=== PATIENT | male | born 1950 | race Caucasian/White ===

== ENCOUNTER 2018-09-05 07:15 | Inpatient (IN) | payer MEDICARE, OTHER ==
[~2018-09-05] VITALS: Ht 180.3 cm; Wt 104.3 kg
--- NOTE | ~2018-09-05 | MORECARE ---
CASE MANAGEMENT DISCHARGE SUMMARY PATIENT: DM RIVERA UNIT: [id number] ADM DATE: 09/05/18 AGE: 68 : 54 SEX: M ROOM/BED: D.1213 AUTHOR: WILLIANDOC PHYSICIAN: REFERRING PHYSICIAN: RAJAT CHATMAN MD DATE OF SERVICE: 09/07/18 Discharge Plan Patient Name: DM RIVERA Facility: [facility]:[place] : 1950 Planned Disposition: Home Anticipated Discharge Date: Discharge Date: Expected LOS: Initial Reviewer: [email or web address] Initial Review Date: 09/07/2018 Generated: 09/07/18 3:34 pm Comments DCP- Discharge Planning Updated by [email or web address]: Kimberly Sterling on 09/07/18 1:[address] Patient Name: DM RIVERA Admission Status: ER Accout number: [id number] Admission Date: 09-05-2018 : 1950 Admission Diagnosis:DVTRCLI OF INTEST, PART UNSP, W/O PERF OR ABSCESS W/O B Attending: RAJAT CHATMAN Current LOS: 2 Anticipated DC Date: Planned Disposition: Home Primary Insurance: MEDICARE A & B Discharge Planning Comments: CM met with patient and spouse at bedside after obtaining verbal consent. Patient plans on returning to his home with his Savannah. Patient denies any discharge needs at this time. IMM explained and served 09/07/18 @ 6562. CM will follow and assist as needed with discharge planning / needs. Roller: Kimberly Sterling DCPIA - Discharge Planning Initial Assessment Updated by [email or web address]: Kimberly Sterling on 09/07/18 2:25 pm * Is the patient Alert and Oriented? Yes * How many steps to enter\exit or inside your home? * PCP Dr. Barajas * Preadmission Environment Home with Family * ADLs Independent * Equipment None * List name and contact numbers for known caregivers / representatives who currently or will assist patient after discharge: Savannah Rivera [phone] * Verbal permission to speak to the caregivers and representatives has been obtained from the patient. Yes * Community resources currently utilized None * Additional services required to return to the preadmission environment? No * Can the patient safely return to the preadmission environment? Yes * Has this patient been hospitalized within the prior 30 days at any hospital? No Coverage Notice Reviewer: [id number] Flor Sterling Notice Issued Date-Time: 09/07/2018 13:55 Notice Type: IM Discharge Notice Notice Delivered To: Patient Relationship to Patient: Self Movement Education Specialist Name: Delivery Method: HAND - Hand Delivered Terri Days: Prior Verbal Notification: Recipient Understood Notice: Yes Recipient Signature: Yes Med Rec Note Co-signed by Attending: Coverage Notice Comment: Last DP export: 09/07/18 1:26 Patient Name: DM RIVERA Page [id number] at 1435 All edits/amendments must be made on the electronic document DICTATION DATE: 09/07/181433 RUNWAY MODEL: BELEN 09/07/181433 RPT#: [id number] DC DATE: STATUS: ADM IN [facility] [address] [place] [address] END OF REPORT
--- NOTE | ~2018-09-05 | MORECARE ---
CASE MANAGEMENT DISCHARGE SUMMARY PATIENT: DM RIVERA UNIT: [id number] ADM DATE: 09/05/18 AGE: 68 : 54 SEX: M ROOM/BED: D.1213 AUTHOR: SAEED DORSEY PHYSICIAN: REFERRING PHYSICIAN: RAJAT CHATMAN MD DATE OF SERVICE: 09/07/18 Discharge Plan Patient Name: DM RIVERA [facility] [facility] 1950 Planned Disposition: Home Anticipated Discharge Date: Discharge Date: Expected LOS: Initial Reviewer: [email or web address] Initial Review Date: 09/07/2018 Generated: 09/07/18 3:26 pm DCPIA - Discharge Planning Initial Assessment Updated by [email or web address]: Kimberly Sterling on 09/07/18 2:25 pm * Is the patient Alert and Oriented? Yes * How many steps to enter\exit or inside your home? * PCP Dr. Barajas * Preadmission Environment Home with Family * ADLs Independent * Equipment None * List name and contact numbers for known caregivers / representatives who currently or will assist patient after discharge: Savannah Rivera [phone] * Verbal permission to speak to the caregivers and representatives has been obtained from the patient. Yes * Community resources currently utilized None * Additional services required to return to the preadmission environment? No * Can the patient safely return to the preadmission environment? Yes * Has this patient been hospitalized within the prior 30 days at any hospital? No Patient Name: DM RIVERA Page [id number] at 1426 All edits/amendments must be made on the electronic document DICTATION DATE: 09/07/18 1426 SKIN INSTALLER: BELEN 09/07/18 1426 RPT#: [id number] DC DATE: STATUS: ADM IN [facility] [address] [place] [address] END OF REPORT
--- NOTE | ~2018-09-05 | MORECARE ---
CASE MANAGEMENT DISCHARGE SUMMARY PATIENT: DM RIVERA UNIT: [id number] ADM DATE: 09/05/18 AGE: 68 : 54 SEX: M ROOM/BED: D.1213 AUTHOR: WILLIANDOC PHYSICIAN: REFERRING PHYSICIAN: RAJAT CHATMAN MD DATE OF SERVICE: 09/10/18 Discharge Plan Patient Name: DM RIVERA Facility: [facility]:[place] : 1950 Planned Disposition: Home Anticipated Discharge Date: Discharge Date: 09/07/2018 Expected LOS: Initial Reviewer: [email or web address] Initial Review Date: 09/07/2018 Generated: 09/10/18 10:21 am Comments DCP- Discharge Planning Updated by [email or web address]: Kimberly Sterling on 09/07/18 1:[address] Patient Name: DM RIVERA Admission Status: ER Accout number: [id number] Admission Date: 09-05-2018 : 1950 Admission Diagnosis:DVTRCLI OF INTEST, PART UNSP, W/O PERF OR ABSCESS W/O B Attending: RAJAT CHATMAN Current LOS: 2 Anticipated DC Date: Planned Disposition: Home Primary Insurance: MEDICARE A & B Discharge Planning Comments: CM met with patient and spouse at bedside after obtaining verbal consent. Patient plans on returning to his home with his Savannah. Patient denies any discharge needs at this time. IMM explained and served 09/07/18 @ 0047. CM will follow and assist as needed with discharge planning / needs. Garbage Person: Kimberly Sterling DCPIA - Discharge Planning Initial Assessment Updated by [email or web address]: Kimberly Sterling on 09/07/18 2:25 pm * Is the patient Alert and Oriented? Yes * How many steps to enter\exit or inside your home? * PCP Dr. Barajas * Preadmission Environment Home with Family * ADLs Independent * Equipment None * List name and contact numbers for known caregivers / representatives who currently or will assist patient after discharge: Savannah Rivera [phone] * Verbal permission to speak to the caregivers and representatives has been obtained from the patient. Yes * Community resources currently utilized None * Additional services required to return to the preadmission environment? No * Can the patient safely return to the preadmission environment? Yes * Has this patient been hospitalized within the prior 30 days at any hospital? No Coverage Notice Reviewer: [id number] Flor Sterling Notice Issued Date-Time: 09/07/2018 13:55 Notice Type: IM Discharge Notice Notice Delivered To: Patient Relationship to Patient: Self Manager Disaster Recovery Name: Delivery Method: HAND - Hand Delivered Terri Days: Prior Verbal Notification: Recipient Understood Notice: Yes Recipient Signature: Yes Med Rec Note Co-signed by Attending: Coverage Notice Comment: Last DP export: 09/07/18 1:34 Patient Name: DM RIVERA Page 22496 at 0922 All edits/amendments must be made on the electronic document DICTATION DATE: 09/10/18920 JUNIOR BOOKKEEPER: BELEN 09/10/18920 RPT#: [id number] DC DATE:09/07/18 STATUS: DIS IN [facility] [address] [place] [address] END OF REPORT
--- NOTE | ~2018-09-05 | HP ---
PATIENT: DM ROBLES MEDICAL RECORD: [id number] ACCOUNT: [id number] LOCATION:[address] : [birth year] ADMISSION DATE: 09/05/18 PCP: MYRNA RILEY MD HISTORY AND PHYSICAL EXAMINATION DATE OF ADMISSION: 09/05/2018 CHIEF COMPLAINT: Abdominal pain. HISTORY OF PRESENT ILLNESS: This is a 68-year-old white male who started having sharp right lower quadrant abdominal pain actually 3 days ago. No fever or chills, pain became sharper today. He presented to the Emergency Room where he was found to have a low-grade fever. His white count was a little elevated and CT scan of the abdomen and pelvis showed sigmoid diverticulitis. He is admitted. PAST MEDICAL AND SURGICAL HISTORY: He has a history of coronary artery disease, some insomnia, and mild hypertension. DRUG ALLERGIES: None known. SURGICAL HISTORY: He has an angioplasty with coronary stents. He has had a history of kidney stones. FAMILY HISTORY: His mother at age 95. His father is also . HABITS: Never smoked. Rare alcohol. No illicit drug use. SOCIAL HISTORY: . 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 HOME MEDICATIONS: Zolpidem 10 mg 1 p.o. at bedtime, lisinopril 5 mg once a day, allopurinol 300 mg once a day, fish oil once a day, aspirin 81 mg once a day, and pravastatin 40 mg once a day. REVIEW OF SYSTEMS: GENERAL: No major weight changes. HEENT: No particular sinus or allergy problems. RESPIRATORY: He has no history of emphysema or asthma. GASTROINTESTINAL: He has a little heartburn. GENITOURINARY: History of kidney stones. MUSCULOSKELETAL: Few joint aches and pains. NEUROLOGIC: No migraines or seizures. PSYCHIATRIC: Denies depression or melancholia. PHYSICAL EXAMINATION: VITAL SIGNS: Temperature 98.8, pulse 82, respirations 16, blood pressure 154/73, O2 sat 96% on room air. GENERAL: He is in no acute distress, awake and alert, he is in a bed in the Emergency Room. HEENT: Grossly within normal limits. NECK: Supple. No JVD or bruit. HEART: Regular rate and rhythm without murmur. LUNGS: Clear to auscultation. ABDOMEN: Soft. There is tenderness in the lower abdomen actually more on the HISTORY AND PHYSICAL [id number] DM ROBLES right side. No guarding, no rebound, no mass. RECTAL: Not done. EXTREMITIES: No edema. LABORATORY DATA: CBC with a white count of 12,300, hemoglobin 15.6, hematocrit 42.8. Basic metabolic panel is all normal. Liver functions are all normal. Urinalysis is clear. CT of the abdomen and pelvis was done showing appendix is normal. There are findings consistent with sigmoid diverticulitis without abscess formation. No free air or free fluid is noted. There is an 8 cm right hepatic lesion represents a large hemangioma; however, a multiphasic MRI of the liver with contrast is recommended for confirmation. Differential considerations could include a necrotic mass or abscess. There are bilateral nephrolithiasis, measuring up to 13 mm on the left. ASSESSMENT: Acute sigmoid diverticulitis. PLAN: He is admitted. IV fluids, started Levaquin and metronidazole. We will start IV Pepcid and Lovenox. Pain control, nausea control. Other tests or procedures as warranted. TRANSINT:[id number] Voice Confirmation ID: [id number] DOCUMENT ID: [id number] MYRNA RILEY MD at 2105 CC: [id number] DICTATION DATE: 09/05/18 1825 PERSONNEL SUPERVISOR: 09/05/[address] [facility] [address] [place] [address]
[2018-09-05] MEDS ORDERED: PRAVACHOL40 MG PO (07:22)
[2018-09-05] MEDS ORDERED: PREVACID30 MG PO (07:22)
[2018-09-05] MEDS ORDERED: LISINOPRIL5 MG PO (07:22)
[2018-09-05] MEDS ORDERED: AMBIEN5 MG PO (07:23)
[2018-09-05] MEDS ORDERED: FISH OIL 1,0001 CA1 PO (07:23)
[2018-09-05] MEDS ORDERED: BAYER CHEWABLE81 MG PO (07:23)
[2018-09-05 07:55] LABS: APPEARANCE CLEAR (CLEAR); BILIRUBIN NEGATIVE (NEGATIVE); COLOR YELLOW (YELLOW); GLUCOSE NEGATIVE (NEGATIVE); KETONE NEGATIVE (NEGATIVE); NITRITE NEGATIVE (NEGATIVE); PROTEIN NEGATIVE (NEGATIVE); UROBILINOGEN NORMAL (NORMAL)
[2018-09-05 08:02] LABS: BASOPHILS 0.1 % (0-2); EOSINOPHILS 0.5 % (0-7); HEMATOCRIT 42.8 % (42.0-54.0); HEMOGLOBIN 15.6 g/dL (13.5-17.5); IMMATURE GRANULOCYTES 0.3 % (0-5); LYMPHOCYTES 14.4 % (15-50); MCH 31.2 pg (26.0-34.0); MCHC 36.4 g/dL (31.0-37.0); MCV 85.6 fL (80.0-100.0); MEAN PLATELET VOLUME 8.7 fL (7.4-10.4); MONOCYTES 13.9 % (2-11); NEUTROPHILS 70.8 % (40-80); PLATELET COUNT 174 10x3/uL (130-400); RDW 13.2 % (11.5-14.5); WBC 12.3 10x3/uL (4.8-10.8)
[2018-09-05 08:23] LABS: ALBUMIN 3.3 g/dL (3.4-5.0); ALKALINE PHOSPHATASE 70 U/L (46-116); ALT (SGPT) 23 U/L (10-68); BILIRUBIN - TOTAL 0.71 mg/dL (0.2-1.3); CALC OSMOLALITY 276 mosm/kg (275-300); CALCIUM 8.5 mg/dL (8.5-10.1); CARBON DIOXIDE 26.2 mmol/L (21.0-32.0); CHLORIDE - SERUM 103 mmol/L (98-107); CREATININE - SERUM 1.1 mg/dL (0.6-1.3); GLUCOSE 111 mg/dL (74-106); POTASSIUM - SERUM 4.1 mmol/L (3.5-5.1); PROTEIN - SERUM 7.2 g/dL (6.4-8.2); SODIUM 137 mmol/L (136-145); UREA NITROGEN 19 mg/dL (7-18); eGFR NON AFRICAN AMERICAN 71 mL/min (90-120)
[2018-09-05 08:27] LABS: AMYLASE - SERUM 36 U/L (25-115); LIPASE 82 U/L (73-393); TROPONIN-I < 0.017 ng/mL (0.000-0.060)
[2018-09-05 16:50] VITALS: BP 154/73; BMI 32.1
[2018-09-05 20:00] VITALS: BP 122/68
[2018-09-05 23:25] VITALS: BP 100/52
[2018-09-06 04:00] VITALS: BP 116/62
[2018-09-06 06:57] LABS: BASOPHILS 0.2 % (0-2); EOSINOPHILS 1.1 % (0-7); HEMATOCRIT 40.6 % (42.0-54.0); HEMOGLOBIN 14.3 g/dL (13.5-17.5); IMMATURE GRANULOCYTES 0.5 % (0-5); LYMPHOCYTES 16.9 % (15-50); MCH 30.7 pg (26.0-34.0); MCHC 35.2 g/dL (31.0-37.0); MCV 87.1 fL (80.0-100.0); MEAN PLATELET VOLUME 8.8 fL (7.4-10.4); MONOCYTES 13.9 % (2-11); NEUTROPHILS 67.4 % (40-80); PLATELET COUNT 162 10x3/uL (130-400); RBC 4.66 10x6/uL (4.20-6.10); RDW 13.5 % (11.5-14.5); WBC 10.2 10x3/uL (4.8-10.8)
[2018-09-06 07:15] VITALS: BP 108/51
[2018-09-06 07:37] LABS: ALBUMIN 2.8 g/dL (3.4-5.0); ALKALINE PHOSPHATASE 59 U/L (46-116); ALT (SGPT) 18 U/L (10-68); BILIRUBIN - TOTAL 0.69 mg/dL (0.2-1.3); CALC OSMOLALITY 276 mosm/kg (275-300); CALCIUM 8.4 mg/dL (8.5-10.1); CARBON DIOXIDE 26.9 mmol/L (21.0-32.0); CHLORIDE - SERUM 105 mmol/L (98-107); GLUCOSE 99 mg/dL (74-106); POTASSIUM - SERUM 4.2 mmol/L (3.5-5.1); PROTEIN - SERUM 6.3 g/dL (6.4-8.2); SODIUM 138 mmol/L (136-145); UREA NITROGEN 15 mg/dL (7-18); eGFR NON AFRICAN AMERICAN 79 mL/min (90-120)
[2018-09-06 11:15] VITALS: BP 100/53
[2018-09-06 15:37] VITALS: BP 105/69
[2018-09-06 19:40] VITALS: BP 118/65
[2018-09-07] VITALS: BP 124/71
[2018-09-07 04:00] VITALS: BP 141/70
[2018-09-07 08:15] VITALS: Ht 180.3 cm; Wt 104.3 kg
[2018-09-07 08:50] VITALS: BP 137/79
[2018-09-07 11:29] VITALS: BP 108/69
[2018-09-07] MEDS ORDERED: LEVOFLOXACIN500 MG PO (13:04)
[2018-09-07] MEDS ORDERED: FLAGYL500 MG PO (13:05)
[2018-09-07] MEDS ORDERED: NORCO 10-325 TA1 TAB PO (13:06)
== END 2018-09-07 14:05 | disposition home or self-care (01) | DRG 392 ==
LOC: D.ER 07:15 → D.M3 11:14 → D.EDHOLD 11:14 → D.M3 13:17
PROVIDERS: Family Medicine
DX: K57.32 Diverticulitis of large intestine without perforation or abscess without bleeding (principal); I25.10 Atherosclerotic heart disease of native coronary artery without angina pectoris; Z95.5 Presence of coronary angioplasty implant and graft; I10 Essential (primary) hypertension; G47.00 Insomnia, unspecified

== ENCOUNTER 2021-04-07 22:21 | Emergency (ER) | payer MEDICARE, OTHER ==
[~2021-04-07] VITALS: Ht 180.3 cm; Wt 84.5 kg
[~2021-04-07 22:21] MED LIST: AMBIEN5 MG PO; BAYER CHEWABLE81 MG PO; FISH OIL 1,0001 CA1 PO; FLAGYL500 MG PO; LEVOFLOXACIN500 MG PO; LISINOPRIL5 MG PO; NORCO 10-325 TA1 TAB PO; PRAVACHOL40 MG PO; PREVACID30 MG PO
[2021-04-07 22:33] VITALS: BP 119/72; Ht 180.3 cm; Wt 84.5 kg
== END 2021-04-08 00:16 | disposition home or self-care (01) ==
LOC: D.ER 22:21
DX: S61.012A Laceration without foreign body of left thumb without damage to nail, initial encounter (principal); I10 Essential (primary) hypertension; K21.9 Gastro-esophageal reflux disease without esophagitis; W25.XXXA Contact with sharp glass, initial encounter; Y93.9 Activity, unspecified; Y92.9 Unspecified place or not applicable